=== PATIENT | female | born 1950 | race Caucasian/White ===

== ENCOUNTER 2020-02-12 16:05 | Emergency (ER) | payer MEDICARE ==
[2020-02-12] MEDS ORDERED: methylPREDNISolone SOD SUCCI 125 MG/2 ML VIAL IV STA (17:40)
[2020-02-12] MEDS ORDERED: diphenhydrAMINE 50 MG/ML 1 ML VIAL IVP STA (17:40)
[2020-02-12] MEDS ORDERED: FAMOTIDINE 20 MG/2 ML VIAL IV STA (17:40)
[2020-02-12 17:48] LABS: Basophils # (A) 0.1 k/uL (0-0.2); Basophils % (A) 1 %; Eosinophils # (A) 0.3 k/uL (0-0.7); Eosinophils % (A) 4 %; HCT 45.2 % (34.0-46.0); HGB 15.2 gm/dL (11.4-16.0); Lymphocytes % (A) 28 %; MCH 30.2 pg (25.0-35.0); MCHC 33.7 g/dL (31.0-37.0); MCV 89.6 fL (80.0-100.0); Mean Platelet Volume 7.7; Monocytes # (A) 0.5 k/uL (0-1.0); Monocytes % (A) 7 %; Neutrophils # (A) 4.2 k/uL (1.3-7.7); Neutrophils % (A) 59 %; Platelet Count 211 k/uL (150-450); RBC 5.05 m/uL (3.80-5.40); RDW 12.5 % (11.5-15.5); WBC 7.2 k/uL (3.8-10.6)
[2020-02-12 17:54] VITALS: RESP 16
[2020-02-12 17:57] LABS: ALT 15 U/L (4-34); AST 34 U/L (14-36); African American GFR (CKD) >90 (>60 ml/min/1.73 sqM); Albumin 4.3 g/dL (3.5-5.0); Alkaline Phosphatase 111 U/L (38-126); Anion Gap 7 mmol/L; Blood Urea Nitrogen 23 mg/dL (7-17); Calcium 9.5 mg/dL (8.4-10.2); Carbon Dioxide 23 mmol/L (22-30); Chloride 105 mmol/L (98-107); Glucose 83 mg/dL (74-99); Non-African American GFR(CKD) 82 (>60 ml/min/1.73 sqM); Potassium 5.3 mmol/L (3.5-5.1); Sodium 135 mmol/L (137-145); Total Bilirubin 1.7 mg/dL (0.2-1.3); Total Protein 7.3 g/dL (6.3-8.2)
[2020-02-12 18:01] LABS: Partial Thromboplastin Time 22.7 sec (22.0-30.0); Prothrombin Time 10.5 sec (9.0-12.0)
--- NOTE | 2020-02-12 18:01 | ED ---
Extremity Problem HPI - General Chief complaint: Extremity Problem,Nontraumatic Stated complaint: DVT-left leg Source: patient Mode of arrival: ambulatory Limitations: no limitations - History of Present Illness Initial comments: Patient is a 62-year-old female with past medical history of DVT who presents emergency Department with reported left leg pain and swelling. She does have a history of DVT for which she is no longer on anticoagulation. Denies any recent trauma. States that she awoke this morning and had some pain in her left leg to the point that it was difficult to ambulate. She took some pain medication went back to sleep. When into her primary care office who sent her here for a DVT ultrasound rule out. Patient was told from ultrasound to go to the emergency room that she did have abnormal results. Patient denies any chest pain or shortness of breath. No abdominal pain. No other alleviating, precipitating or modifying factors - Related Data Home Medications Medication Instructions Recorded Confirmed Aspirin [Adult Low Dose Aspirin EC] 81 mg PO DAILY 02/12/20 02/12/20 Celecoxib [CeleBREX] 200 mg PO DAILY 02/12/20 02/12/20 Eye-Anton (Vitamin/Unknown Strength) 1 tab PO DAILY 02/12/20 02/12/20 LORazepam [Ativan] 1 mg PO BID PRN 02/12/20 02/12/20 Naproxen Sod/Diphenhydramine 2 tab PO HS PRN 02/12/20 02/12/20 [Aleve Pm Caplet] Turmeric (Unknown Strength) 1 tab PO DAILY 02/12/20 02/12/20 Vitamin B-12 (Unknown Strength) 1 tab PO DAILY 02/12/20 02/12/20 Vitamin D3 (Unknown Strength) 1 tab PO DAILY 02/12/20 02/12/20 Previous Rx's Medication Instructions Recorded Apixaban [Eliquis Starter Pack 0 mg PO DIRECTED 30 Days #1 pack 02/12/20 (for VTE)] Allergies Allergy/AdvReac Type Severity Reaction Status Date / Time aloe vera Allergy Unknown Verified 02/12/20 16:16 Iodinated Contrast Media Allergy Unknown Verified 02/12/20 16:16 adhesive AdvReac Rash/Hives Verified 02/12/20 17:50 Review of Systems ROS Statement: Those systems with pertinent positive or pertinent negative responses have been documented in the HPI. ROS Other: All systems not noted in ROS Statement are negative. Past Medical History Additional Past Medical History / Comment(s): arthritis, dvt Past Surgical History: Section, Cholecystectomy, Orthopedic Surgery, Tonsillectomy Past Psychological History: Anxiety Smoking Status: Former smoker Past Alcohol Use History: None Reported Past Drug Use History: None Reported General Exam Limitations: no limitations Course Vital Signs 02/12/20 02/12/20 02/12/20 16:11 17:52 19:00 Temperature 97.4 F L 97.6 F Pulse Rate 76 65 68 Respiratory 18 16 16 Rate Blood Pressure 140/79 139/64 141/56 O2 Sat by Pulse 98 99 94 L Oximetry Medical Decision Making - Medical Decision Making Upon arrival the patient is placed into room 17. A thorough history and physical exam was performed. I did review the patient's ultrasound report which demonstrates positive occluding DVT in the left common femoral vein, femoral vein, popliteal vein and in one of the 2 upper calf veins. Because of the pat ient's proximal DVT I did recommend a CT of the patient's abdomen and pelvis as well as laboratory studies. Laboratory studies are reviewed. Potassium 5.3. CT of the patient's abdomen and pelvis demonstrates no evidence of venous thrombosis in the abdomen and pelvis. I did discuss results with the patient. I did give her dose about within the emergency room. She is given a starter pack prescription which is sent to the pharmacy. The patient is instructed to follow-up with her primary care physician in regards to her anticoagulation. She has no contra indications to anticoagulation. I also recommended the patient follow up with vasculature. She has any new or worsening symptoms she should return to the emergency department. Patient was then discharged home in stable condition - Lab Data Result diagrams: 02/12/20 17:39 02/12/20 17:39 Lab Results 02/12/20 02/12/20 02/12/20 Range/Units 17:39 17:39 17:39 WBC 7.2 (3.8-10.6) k/uL RBC 5.05 (3.80-5.40) m/uL Hgb 15.2 (11.4-16.0) gm/dL Hct 45.2 (34.0-46.0) % MCV 89.6 (80.0-100.0) fL MCH 30.2 (25.0-35.0) pg MCHC 33.7 (31.0-37.0) g/dL RDW 12.5 (11.5-15.5) % Plt Count 211 (150-450) k/uL Neutrophils % 59 % Lymphocytes % 28 % Monocytes % 7 % Eosinophils % 4 % Basophils % 1 % Neutrophils # 4.2 (1.3-7.7) k/uL Lymphocytes # 2.0 (1.0-4.8) k/uL Monocytes # 0.5 (0-1.0) k/uL Eosinophils # 0.3 (0-0.7) k/uL Basophils # 0.1 (0-0.2) k/uL PT 10.5 (9.0-12.0) sec INR 1.0 (<1.2) APTT 22.7 (22.0-30.0) sec Sodium 135 L (137-145) mmol/L Potassium 5.3 H (3.5-5.1) mmol/L Chloride 105 (98-107) mmol/L Carbon Dioxide 23 (22-30) mmol/L Anion Gap 7 mmol/L BUN 23 H (7-17) mg/dL Creatinine 0.75 (0.52-1.04) mg/dL Est GFR (CKD-EPI)AfAm >90 (>60 ml/min/1.73 sqM) Est GFR (CKD-EPI)NonAf 82 (>60 ml/min/1.73 sqM) Glucose 83 (74-99) mg/dL Calcium 9.5 (8.4-10.2) mg/dL Total Bilirubin 1.7 H (0.2-1.3) mg/dL AST 34 (14-36) U/L ALT 15 (4-34) U/L Alkaline Phosphatase 111 (38-126) U/L Total Protein 7.3 (6.3-8.2) g/dL Albumin 4.3 (3.5-5.0) g/dL Disposition Clinical Impression: Deep vein thrombosis (DVT) of lower extremity Disposition: HOME SELF-CARE Condition: Stable Instructions (If sedation given, give patient instructions): Deep Vein Thrombosis (ED) Additional Instructions: Please follow-up with your primary care doctor. Return to the emergency department for any new or worsening symptoms Prescriptions: Apixaban [Eliquis Starter Pack (for VTE)] 0 mg PO DIRECTED 30 Days #1 pack Is patient prescribed a controlled substance at d/c from ED?: No Referrals: Darline Griffith DO [Primary Care Provider] - 1-2 days Roque Schneider DO [STAFF PHYSICIAN] - 1-2 days Time of Disposition: 19:17
--- NOTE | 2020-02-12 18:29 | CT ---
EXAMINATION TYPE: CT abdomen pelvis w con DATE OF EXAM: 02/12/2020 COMPARISON: None HISTORY: Proximal DVT confirmed, rule out iliac/abdominal burden CT DLP: 2025.6 mGycm Automated exposure control for dose reduction was used. CONTRAST: Performed with IV Contrast, patient injected with 100ml mL of Isovue 300. Multiple axial sections were obtained from the diaphragm to the floor the pelvis with IV contrast. FINDINGS: Lung bases are clear of consolidation. There is minimal focal atelectasis right posterior lung base. There is no pleural effusion. Heart size is normal. There is no pericardial effusion. The stomach is intact. Liver spleen pancreas appear intact. Bile ducts are not dilated. Gallbladder appears absent. There is no adrenal mass. Kidneys show satisfactory contrast opacification. There is no hydronephrosi s. Delayed images show normal renal excretion. Appendix is not seen. There is no sign of thickened ap pendix. There is no mesenteric edema. There is no ascites or free air. There is no sign of a bowel obstructio n. Uterus is anteverted. There is no sign of a pelvic mass. Lumbar vertebra have normal alignment. There is multilevel vacuum disc phenomenon. There is no compre ssion fracture. The bony pelvis appears intact. There is normal contrast opacification of the iliac and proximal femoral arteries. I see no obvious t hrombus in the visualized iliac and femoral veins. IMPRESSION: Negative CT scan abdomen and pelvis. No evidence of venous thrombosis in the abdomen and pelvis.
[2020-02-12] MEDS ORDERED: APIXABAN 5 MG TAB PO STA (19:00)
[2020-02-12 19:13] VITALS: BP 141/56; PULSE 68; TEMP 97.6
== END 2020-02-12 19:33 | disposition home or self-care (01) ==
LOC: EC 16:05
DX: I82.412 Acute embolism and thrombosis of left femoral vein (principal); F41.9 Anxiety disorder, unspecified; Z79.899 Other long term (current) drug therapy; Z79.82 Long term (current) use of aspirin; Z91.041 Radiographic dye allergy status; Z91.048 Other nonmedicinal substance allergy status; Z87.891 Personal history of nicotine dependence
CPT/HCPCS: 36415; 80053; 85025; 85610; 85730; 74177; 99284; 96374; 96375 ×2; J1200; J2930; Q9967

== ENCOUNTER → 2020-02-12 | Outpatient (CLI) | payer MEDICARE ==
--- NOTE | 2020-02-12 16:02 | US ---
EXAMINATION TYPE: US venous doppler duplex LE LT DATE OF EXAM: 02/12/2020 3:39 PM COMPARISON: NONE CLINICAL HISTORY: Pain and swelling Left M79.605. Increased pain and swelling left leg; prior left le g DVT 1998 (patient was told by vascular surgeon that DVT was in left pelvic vein) SIDE PERFORMED: Left TECHNIQUE: The lower extremity deep venous system is examined utilizing real time linear array sonog mavis with graded compression, doppler sonography and color-flow sonography. VESSELS IMAGED: Common Femoral Vein Deep Femoral Vein Greater Saphenous Vein * Femoral Vein Popliteal Vein Small Saphenous Vein * Proximal Calf Veins (* superficial vessels) There is low-level internal echoes, lack of color flow, lack of Doppler waveform involving the left c ommon femoral, superficial femoral, deep femoral, and popliteal veins, there is lack of compressibili ty. Left Leg: Positive for occluding DVT in Left CFV, FV, Popliteal Vein and in one of two upper calf ve ins. IMPRESSION: Deep veins thrombosis throughout the left lower extremity.
== END | disposition home or self-care (01) ==
LOC: RADUSWWP 15:07
PROVIDERS: ATTEND Nurse Practitioner
DX: I82.402 Acute embolism and thrombosis of unspecified deep veins of left lower extremity (principal)

== ENCOUNTER → 2021-03-04 | Outpatient (CLI) | payer MEDICARE ==
--- NOTE | 2021-03-05 16:47 | BD ---
EXAMINATION TYPE: Axial Bone Density DATE OF EXAM: 03/04/2021 COMPARISON: NONE CLINICAL HISTORY: Height: 62 Weight: 235.0 FRAX RISK QUESTIONS: Alcohol (3 or more units per day): no Family History (Parent hip fracture): no Glucocorticoids (More than 3mos): no (Ex: prednisone, prednisolone, methylprednisolone, dexamethasone, and hydrocortisone). History of Fracture in Adulthood: yes Secondary Osteoporosis: 1. Type 1 Diabetes: no 2. Hyperthyroidism: no 3. Menopause before 45: no 4. Malnutrition: no 5. Chronic liver disease: no Rheumatoid Arthritis: no Current Tobacco Use: no RISK FACTORS HISTORY OF: Surgery to Spine/Hip(right/left)/Wrist (right/left): no Family History of Osteoporosis: yes Active: no Diet low in dairy products/other sources of calcium: no Postmenopausal woman: age 57 Lost more than 2 inches in height since high school: no MEDICATIONS: celebrex, xarelto, vitamins Additional History: EXAM MEASUREMENTS: Bone mineral densitometry was performed using the [employer] System. Bone mineral density as measured about the Lumbar spine is: ----- L1-L4(G/cm2): 0.920 T Score Values are as follows: ----- L2: -2.3 ----- L3: -2.0 ----- L4: -0.8 ----- L1-L4: -3.5 Bone mineral density has: decreased -3.5 % since study of: 06.01.2005 Bone mineral density about the R hip (g/cm2): 0.690 Bone mineral density about the L hip (g/cm2): 0.637 T Score values are as follows: -----R Neck: -2.5 -----L Neck: -2.9 -----R Total: -2.6 -----L Total: -3.1 Bone mineral density has: decreased -22.0 % since study of: 06.01.2005 IMPRESSION: Osteoporosis (T Score less than -2.5). There is increased fracture risk and therapy is usually indicated based on age. Re-Screen 1-2 years. NOTE: T-SCORE=SD OF THE YOUNG ADULT MEAN.
--- NOTE | 2021-03-11 13:34 | MM ---
Reason for exam: screening (asymptomatic). Last mammogram was performed 1 year and 7 months ago. History: Patient is postmenopausal. Physical Findings: A clinical breast exam by your physician is recommended on an annual basis and results should be correlated with mammographic findings. MG Screening Mammo w CAD Bilateral CC and MLO view(s) were taken. Prior study comparison: July 24, 2019, mammogram, performed at [facility]. July 01, 2017, mammogram, performed at [facility]. The breast tissue is almost entirely fat. No significant changes when compared with prior studies. ASSESSMENT: Negative, BI-RAD 1 RECOMMENDATION: Routine screening mammogram of both breasts in 1 year. Manage on a clinical basis with regard to intermittent right nipple itchiness.
== END | disposition home or self-care (01) ==
LOC: RADMAMWWP 14:25
PROVIDERS: ATTEND Family Medicine
DX: Z12.31 Encounter for screening mammogram for malignant neoplasm of breast (principal); Z13.820 Encounter for screening for osteoporosis; M85.80 Other specified disorders of bone density and structure, unspecified site; M81.0 Age-related osteoporosis without current pathological fracture
CPT/HCPCS: 77067; 77080

== ENCOUNTER → 2024-06-08 | Outpatient (CLI) | payer MEDICARE ==
--- NOTE | 2024-06-11 17:40 | MM ---
Reason for Exam: Screening (asymptomatic). Last mammogram was performed 3 year(s) and 3 month(s) ago. Patient History: Menarche at age 17. First Full-Term at age 24. Postmenopausal. Risk Values: Rubia 5 year model risk: 1.4%. NCI Lifetime model risk: 3.8%. Prior Study Comparison: 07/01/2017 Screening Mammogram, [facility], [place]. 07/24/2019 Screening Mammogram, [facility]. 03/04/2021 Bilateral Screening Mammogram, [facility]. Tissue Density: The breasts are almost entirely fatty. Findings: Analyzed By CAD. The pattern is symmetrical. There is worsening right breast distortion in the upper medial lateral subtle underlying nodularity may be present. This appears to be a change. Additional diagnostic workup at this level is recommended. Left breast:No suspicious groups of microcalcifications, spiculated or lobular masses, architectural distortion or other secondary signs of malignancy are mammographically apparent. Overall Assessment: Negative, BI-RAD 1 Management: Diagnostic Mammogram of the right breast. A negative mammogram report should not preclude additional follow up of suspicious palpable abnormalities. Patient should continue monthly self breast exam. A clinical breast exam by your physician is recommended on an annual basis and results should be correlated with mammographic findings. Note on Rubia scores and lifetime risk: 1. A Rubia score greater than 3% is considered moderate risk. If this is the case, consider specialist referral to assess eligibility for a risk reducing agent. 2. If overall lifetime risk for the development of breast cancer is 20% or higher, the patient may qualify for future screening with alternating mammogram and breast MRI. [facility], , 06/11/2024 5:37 PM. Electronically signed and approved by: Patrice Foreman D.O. Radiologis
== END | disposition home or self-care (01) ==
LOC: RADMAMWWP 12:18
PROVIDERS: ATTEND Family Medicine
DX: Z12.31 Encounter for screening mammogram for malignant neoplasm of breast (principal); Z78.0 Asymptomatic menopausal state; R92.313 Mammographic fatty tissue density, bilateral breasts
CPT/HCPCS: 77067

== ENCOUNTER → 2024-06-09 | Outpatient (CLI) | payer MEDICARE ==
--- NOTE | 2024-06-11 22:12 | BD ---
EXAMINATION TYPE: Axial Bone Density DATE OF EXAM: 06/09/2024 CLINICAL HISTORY: 74 years old Female. ICD-10 CODE: Z78.0 ASYMPTOMATIC MENOPAUSAL STATE , Additional History: Height: 61.25" Weight: 252lbs FRAX RISK QUESTIONS: Alcohol (3 or more units per day): No Family History (Parent hip fracture): No Glucocorticoids (More than 3mos): No (Ex: prednisone, prednisolone, methylprednisolone, dexamethasone, and hydrocortisone). History of Fracture in Adulthood: Yes Secondary Osteoporosis: 1. Type 1 Diabetes: No 2. Hyperthyroidism: No 3. Menopause before 45: No 4. Malnutrition: No 5. Chronic liver disease: No Rheumatoid Arthritis: No Current Tobacco Use: No RISK FACTORS HISTORY OF: Hip Fracture (Right/Left): No Spine Fracture: No History of Wrist Fracture: No Surgery to Spine/Hip(right/left)/Wrist (right/left): No MEDICATIONS: Thyroid Medications: No Osteoporosis Medications: Yes, Prolia injection for about 3 years EXAM MEASUREMENTS: Bone mineral densitometry was performed using the [employer] System. Bone mineral density as measured about the Lumbar spine is: ----- L1-L4(G/cm2): 1.129 T Score Values are as follows: ----- L1: -1.9 ----- L2: -0.8 ----- L3: 0.4 ----- L4: 0.1 ----- L1-L4: -0.4 Z Score Values are as follows: ----- L1: -1.4 ----- L2: -0.2 ----- L3: 1.0 ----- L4: 0.7 ----- L1-L4: 0.1 Bone mineral density has: increased 22.7% since study of: 03/04/2021 Bone mineral density about the R hip (g/cm2): 0.719 Bone mineral density about the L hip (g/cm2): 0.626 T Score values are as follows: -----R Neck: -2.7 -----L Neck: -3.0 -----R Total: -2.3 -----L Total: -3.0 Z Score values are as follows: -----R Neck: -1.6 -----L Neck: -1.9 -----R Total: -1.5 -----L Total: -2.3 Bone mineral density has: increased 3.5% since study of: 03/04/2021 FRAX%s: The graph provided illustrates a 24.6% chance for a major osteoporotic fx and a 7.7% chance f or the hips probability for fx in 10 years time. IMPRESSION: Osteoporosis (T Score less than -2.5). There is increased fracture risk and therapy is usually indicated based on age. Re-Screen 1-2 years. NOTE: T-SCORE=SD OF THE YOUNG ADULT MEAN. [facility], , 06/11/2024 10:10 PM
== END | disposition home or self-care (01) ==
LOC: RADBDWWP 14:27
PROVIDERS: ATTEND Family Medicine
DX: M81.0 Age-related osteoporosis without current pathological fracture (principal); Z78.0 Asymptomatic menopausal state
CPT/HCPCS: 77080

== ENCOUNTER → 2024-06-15 | Outpatient (CLI) | payer MEDICARE ==
--- NOTE | 2024-06-15 14:45 | MM ---
Reason for Exam: Additional evaluation requested from abnormal screening. Last screening mammogram was performed less than 1 month ago. Patient History: Menarche at age 17. First Full-Term at age 24. Postmenopausal. Risk Values: Rubia 5 year model risk: 1.4%. NCI Lifetime model risk: 3.8%. Tissue Density: Right: There are scattered areas of fibroglandular density. Findings: Analyzed By CAD. Summation density upper outer right breast mass or distortion. No suspicious calcifications. Overall Assessment: Negative, BI-RAD 1 Management: Screening Mammogram of both breasts in 1 year. . Results were given to the patient verbally at the time of exam. Patient should continue monthly self-breast exams. A clinical breast exam by your physician is recommended on an annual basis. This exam should not preclude additional follow-up of suspicious palpable abnormalities. Note on Rubia scores and lifetime risk: 1. A Rubia score greater than 3% is considered moderate risk. If this is the case, consider specialist referral to assess eligibility for a risk reducing agent. 2. If overall lifetime risk for the development of breast cancer is 20% or higher, the patient may qualify for future screening with alternating mammogram and breast MRI. [facility], , 06/15/2024 2:42 PM. Electronically signed and approved by: Betito Fulton M.D. Radiologis
== END | disposition home or self-care (01) ==
LOC: RADMAMWWP 14:19
PROVIDERS: ATTEND Family Medicine
DX: R92.8 Other abnormal and inconclusive findings on diagnostic imaging of breast (principal); R92.323 Mammographic fibroglandular density, bilateral breasts; Z78.0 Asymptomatic menopausal state
CPT/HCPCS: 77065; G0279; 77061